=== PATIENT | male | born 1990 | race Caucasian/White ===

== ENCOUNTER 2017-08-26 16:46 | Emergency (ER) | payer BC, OTHER ==
[~2017-08-26] VITALS: Ht 152.4 cm; Wt 51.6 kg
[~2017-08-26 16:46] MED LIST: ZITHROMAX Z-PA250 MG PO
[2017-08-26 22:20] VITALS: BP 161/98
== END 2017-08-26 22:20 | disposition home or self-care (01) ==
LOC: EME 16:46
PROC: 0H9GXZX Drainage of Left Hand Skin, External Approach, Diagnostic (ICD-10-PCS; principal; 2017-08-26)
DX: L03.114 Cellulitis of left upper limb (principal); G80.9 Cerebral palsy, unspecified
CPT/HCPCS: 87070; 87075; 87077; 87147; 87186; 87205; 99281; 99285